=== PATIENT | male | born 1995 ===

== ENCOUNTER 2016-12-21 11:49 | Emergency (ER) | payer OTHER ==
--- NOTE | 2016-12-21 13:10 | DIAGNOSTIC IMAGING REPORT ---
PROCEDURE: XR CHEST 2 VIEW INDICATION: SHORTNESS OF BREATH TECHNIQUE: PA and lateral views. COMPARISON: None. FINDINGS: Lungs are clear. Heart and mediastinum are normal. Thorax is normal. IMPRESSION: 1. Negative chest.
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
--- NOTE | 2016-12-21 14:21 | ED ORDER SUMMARY ---
..... Patient: MANN PIZARRO OrderSheet [facility] VisitID: [id number] [place] [address] 21y, M Registration Date/Time: 12/21/2016 ORDER SHEET Weight: 73.9 kg (stated) Allergies: No Known Drug Allergy GENERAL ORDERS: Chest 2V Urgent (12:19 12/21/2016 DDean R.N. per protocol) (Ack 12:23 KHoerner) (13:08 DDean R.N.) EKG - ER Stat (12:20 12/21/2016 DDean R.N. per protocol) (Ack 12:23 KHoerner) (12:33 LNations ER Tech1) Cardiac Panel Stat (13:28 12/21/2016 Raad P.A.-C) (Ack 13:35 KHoerner) (13:54 KHoerner) MEDICATION ORDERS: IV FLUIDS: ORDER SHEET NOTES: [Electronically signed by Rosie Schultz R.N. (14:36 12/21/2016)] [Electronically signed by Mari Robertson P.ABrown-C (15:00 12/21/2016)] [Electronically locked/signed by Rosie Schultz R.N. (14:36 12/21/2016)]
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
--- NOTE | 2016-12-21 14:21 | ED ORDER SUMMARY ---
..... Patient: MANN PIZARRO OrderSheet [facility] VisitID: [id number] [place] [address] 21y, M Registration Date/Time: 12/21/2016 ORDER SHEET Weight: 73.9 kg (stated) Allergies: No Known Drug Allergy GENERAL ORDERS: Chest 2V Urgent (12:19 12/21/2016 DDean R.N. per protocol) (Ack 12:23 KHoerner) (13:08 DDean R.N.) EKG - ER Stat (12:20 12/21/2016 DDean R.N. per protocol) (Ack 12:23 KHoerner) (12:33 LNations ER Tech1) Cardiac Panel Stat (13:28 12/21/2016 Raad P.A.-C) (Ack 13:35 KHoerner) (13:54 KHoerner) MEDICATION ORDERS: IV FLUIDS: ORDER SHEET NOTES: [Electronically signed by Rosie Schultz R.N. (14:36 12/21/2016)] [Electronically signed by Mari Robertson P.ABrown-C (15:00 12/21/2016)] [Electronically locked/signed by Rosie Schultz R.N. (14:36 12/21/2016)]
--- NOTE | 2016-12-21 15:00 | ED DISCHARGE INSTRUCTIONS ---
Patient: MANN PIZARRO General Instructions [facility] VisitID: [id number] [place] [address] 21y, M Registration Date/Time: 12/21/2016 Substance abuse problems: abuse of alcohol. Contusion to the anterior chest. INSTRUCTIONS (with YOUR DR in 7 days if symptoms persist Please be careful over drinking as , alcohol is a sedative and will significantly impact your ability to breathe and function May take NSAID for pain, which may persist for up to 2 weeks). Warnings: Further evaluation is necessary. It is very important to follow up with a physician. OTC Medications: Motrin IB 200 mg (available over the counter): take 4 orally every 8 hours for 5 days, as needed for pain ADDITIONAL INFORMATION Chest Contusion Acontusion is a bruise to the skin, muscle or ribs. It may cause pain, tenderness, swelling and a purplish discoloration. Contusions take a few days to a few weeks to heal. Home Care: Rest. You should not be doing any heavy lifting or strenuous exertion, or any activity that causes pain. You may use acetaminophen (Tylenol) or ibuprofen (Motrin, Advil) to control pain, unless another pain medicine was prescribed. [ NOTE: If you have chronic liver or kidney disease or ever had a stomach ulcer or GI bleeding, talk with your doctor before using these medicines.] Follow Up with your doctor during the next week or as directed. Get Prompt Medical Attention if any of the following occur: Shortness of breath Increasing chest pain with breathing Dizziness, weakness or fainting New or worsening of abdominal pain Fever of 100.4F (38C) or higher, or as directed by your healthcare provider Ibuprofen Oral tablet What is this medicine? IBUPROFEN (eye BYOO proe fen) is a non-steroidal anti-inflammatory drug (NSAID). It is used for dental pain, fever, headaches or migraines, osteoarthritis, rheumatoid arthritis, or painful monthly periods. It can also relieve minor aches and pains caused by a cold, flu, or sore throat. How should I use this medicine? Take this medicine by mouth with a glass of water. Follow the directions on the prescription label. Take this medicine with food if your stomach gets upset. Try to not lie down for at least 10 minutes after you take the medicine. Take your medicine at regular intervals. Do not take your medicine more often than directed. A special MedGuide will be given to you by the pharmacist with each prescription and refill. Be sure to read this information carefully each time. Talk to your shingle grader regarding the use of this medicine in children. Special care may be needed. What side effects may I notice from receiving this medicine? Side effects that you should report to your doctor or health transitional care nurse as soon as possible: allergic reactions like skin rash, itching or hives, swelling of the face, lips, or tongue black or bloody stools, blood in the urine or in vomit breathing problems changes in vision chest pain general ill feeling or flu-like symptoms nausea or vomiting redness, blistering, peeling or loosening of the skin, including inside the mouth slurred speech or weakness on one side of the body stomach pain unexplained weight gain or swelling unusually weak or tired yellowing of eyes or skin Side effects that usually do not require medical attention (report to your doctor or health transitional care nurse if they continue or are bothersome): constipation or diarrhea dizziness gas or heartburn stomach upset What may interact with this medicine? Do not take this medicine with any of the following medications: cidofovir ketorolac methotrexate pemetrexed This medicine may also interact with the following medications: alcohol aspirin diuretics lithium other drugs for inflammation like prednisone warfarin What if I miss a dose? If you miss a dose, take it as soon as you can. If it is almost time for your next dose, take only that dose. Do not take double or extra doses. Where should I keep my medicine? Keep out of the reach of children. Store at room temperature between 15 and 30 degrees C (59 and 86 degrees F). Keep container tightly closed. Throw away any unused medicine after the expiration date. What should I tell my health care provider before I take this medicine? They need to know if you have any of these conditions: asthma cigarette smoker drink more than 3 alcohol containing drinks a day heart disease or circulation problems such as heart failure or leg edema (fluid retention) high blood pressure kidney disease liver disease stomach bleeding or ulcers an unusual or allergic reaction to ibuprofen, aspirin, other NSAIDS, other medicines, foods, dyes, or preservatives or trying to get breast-feeding What should I watch for while using this medicine? Tell your doctor or healthcare professional if your symptoms do not start to get better or if they get worse. This medicine does not prevent heart attack or stroke. In fact, this medicine may increase the chance of a heart attack or stroke. The chance may increase with longer use of this medicine and in people who have heart disease. If you take aspirin to prevent heart attack or stroke, talk with your doctor or health transitional care nurse. Do not take other medicines that contain aspirin, ibuprofen, or naproxen with this medicine. Side effects such as stomach upset, nausea, or ulcers may be more likely to occur. Many medicines available without a prescription should not be taken with this medicine. This medicine can cause ulcers and bleeding in the stomach and intestines at any time during treatment. Ulcers and bleeding can happen without warning symptoms and can cause . To reduce your risk, do not smoke cigarettes or drink alcohol while you are taking this medicine. You may get drowsy or dizzy. Do not drive, use machinery, or do anything that needs mental alertness until you know how this medicine affects you. Do not stand or sit up quickly, especially if you are an older patient. This reduces the risk of dizzy or fainting spells. This medicine can cause you to bleed more easily. Try to avoid damage to your teeth and gums when you brush or floss your teeth. You have been given the following additional information: Chest Wall Contusion Ibuprofen Oral tablet (Electronically signed by Mari Robertson P.A.-C 12/21/2016 15:00)
--- NOTE | 2016-12-21 15:00 | ED MAR SUMMARY ---
..... Medication Administration Record [facility] [address] [place], [place] [id number] Patient: MANN PIZARRO Visit ID: [id number] 21y, M Weight: 73.9 kg Height/Length: 68 in BMI: 24.8 ALLERGIES: No Known Drug Allergy
--- NOTE | 2016-12-21 15:00 | ED MED RECONCILIATION SUMMARY ---
Patient: MANN PIZARRO Medication Reconciliation Report [facility] VisitID: [id number] [address] [place] [address] 21y, M Registration Date/Time: 12/21/2016 Weight: 73.9 kg Height/Length: 68 in. BMI: 24.8 ALLERGIES: No Known Drug Allergy The patient's Home Medications are listed below: NONE. The source(s) of the original Home Medication information: Not obtained. The following Medications were given to the patient in the Emergency Department: None. The following Medications were prescribed to the patient: Motrin IB 200 mg (available over the counter): take 4 orally every 8 hours for 5 days, as needed for pain -- Mari Robertson P.A.-C
--- NOTE | 2016-12-21 15:00 | ED MAR SUMMARY ---
..... Medication Administration Record [facility] [address], [place] [id number] Patient: MANN PIZARRO Visit ID: [id number] 21y, M Weight: 73.9 kg Height/Length: 68 in BMI: 24.8 ALLERGIES: No Known Drug Allergy
--- NOTE | 2016-12-21 15:00 | ED MED RECONCILIATION SUMMARY ---
Patient: MANN PIZARRO Medication Reconciliation Report [facility] VisitID: [id number] [address] [place] [address] 21y, M Registration Date/Time: 12/21/2016 Weight: 73.9 kg Height/Length: 68 in. BMI: 24.8 ALLERGIES: No Known Drug Allergy The patient's Home Medications are listed below: NONE. The source(s) of the original Home Medication information: Not obtained. The following Medications were given to the patient in the Emergency Department: None. The following Medications were prescribed to the patient: Motrin IB 200 mg (available over the counter): take 4 orally every 8 hours for 5 days, as needed for pain -- Mari Robertson P.A.-C
--- NOTE | 2016-12-21 15:00 | ED DISCHARGE INSTRUCTIONS ---
Patient: MANN PIZARRO General Instructions [facility] VisitID: [id number] [place] [address] 21y, M Registration Date/Time: 12/21/2016 Substance abuse problems: abuse of alcohol. Contusion to the anterior chest. INSTRUCTIONS (with YOUR DR in 7 days if symptoms persist Please be careful over drinking as , alcohol is a sedative and will significantly impact your ability to breathe and function May take NSAID for pain, which may persist for up to 2 weeks). Warnings: Further evaluation is necessary. It is very important to follow up with a physician. OTC Medications: Motrin IB 200 mg (available over the counter): take 4 orally every 8 hours for 5 days, as needed for pain ADDITIONAL INFORMATION Chest Contusion Acontusion is a bruise to the skin, muscle or ribs. It may cause pain, tenderness, swelling and a purplish discoloration. Contusions take a few days to a few weeks to heal. Home Care: Rest. You should not be doing any heavy lifting or strenuous exertion, or any activity that causes pain. You may use acetaminophen (Tylenol) or ibuprofen (Motrin, Advil) to control pain, unless another pain medicine was prescribed. [ NOTE: If you have chronic liver or kidney disease or ever had a stomach ulcer or GI bleeding, talk with your doctor before using these medicines.] Follow Up with your doctor during the next week or as directed. Get Prompt Medical Attention if any of the following occur: Shortness of breath Increasing chest pain with breathing Dizziness, weakness or fainting New or worsening of abdominal pain Fever of 100.4F (38C) or higher, or as directed by your healthcare provider Ibuprofen Oral tablet What is this medicine? IBUPROFEN (eye BYOO proe fen) is a non-steroidal anti-inflammatory drug (NSAID). It is used for dental pain, fever, headaches or migraines, osteoarthritis, rheumatoid arthritis, or painful monthly periods. It can also relieve minor aches and pains caused by a cold, flu, or sore throat. How should I use this medicine? Take this medicine by mouth with a glass of water. Follow the directions on the prescription label. Take this medicine with food if your stomach gets upset. Try to not lie down for at least 10 minutes after you take the medicine. Take your medicine at regular intervals. Do not take your medicine more often than directed. A special MedGuide will be given to you by the pharmacist with each prescription and refill. Be sure to read this information carefully each time. Talk to your photogrammetric compilation specialist regarding the use of this medicine in children. Special care may be needed. What side effects may I notice from receiving this medicine? Side effects that you should report to your doctor or health rehab care assistant as soon as possible: allergic reactions like skin rash, itching or hives, swelling of the face, lips, or tongue black or bloody stools, blood in the urine or in vomit breathing problems changes in vision chest pain general ill feeling or flu-like symptoms nausea or vomiting redness, blistering, peeling or loosening of the skin, including inside the mouth slurred speech or weakness on one side of the body stomach pain unexplained weight gain or swelling unusually weak or tired yellowing of eyes or skin Side effects that usually do not require medical attention (report to your doctor or health rehab care assistant if they continue or are bothersome): constipation or diarrhea dizziness gas or heartburn stomach upset What may interact with this medicine? Do not take this medicine with any of the following medications: cidofovir ketorolac methotrexate pemetrexed This medicine may also interact with the following medications: alcohol aspirin diuretics lithium other drugs for inflammation like prednisone warfarin What if I miss a dose? If you miss a dose, take it as soon as you can. If it is almost time for your next dose, take only that dose. Do not take double or extra doses. Where should I keep my medicine? Keep out of the reach of children. Store at room temperature between 15 and 30 degrees C (59 and 86 degrees F). Keep container tightly closed. Throw away any unused medicine after the expiration date. What should I tell my health care provider before I take this medicine? They need to know if you have any of these conditions: asthma cigarette smoker drink more than 3 alcohol containing drinks a day heart disease or circulation problems such as heart failure or leg edema (fluid retention) high blood pressure kidney disease liver disease stomach bleeding or ulcers an unusual or allergic reaction to ibuprofen, aspirin, other NSAIDS, other medicines, foods, dyes, or preservatives or trying to get breast-feeding What should I watch for while using this medicine? Tell your doctor or healthcare professional if your symptoms do not start to get better or if they get worse. This medicine does not prevent heart attack or stroke. In fact, this medicine may increase the chance of a heart attack or stroke. The chance may increase with longer use of this medicine and in people who have heart disease. If you take aspirin to prevent heart attack or stroke, talk with your doctor or health rehab care assistant. Do not take other medicines that contain aspirin, ibuprofen, or naproxen with this medicine. Side effects such as stomach upset, nausea, or ulcers may be more likely to occur. Many medicines available without a prescription should not be taken with this medicine. This medicine can cause ulcers and bleeding in the stomach and intestines at any time during treatment. Ulcers and bleeding can happen without warning symptoms and can cause . To reduce your risk, do not smoke cigarettes or drink alcohol while you are taking this medicine. You may get drowsy or dizzy. Do not drive, use machinery, or do anything that needs mental alertness until you know how this medicine affects you. Do not stand or sit up quickly, especially if you are an older patient. This reduces the risk of dizzy or fainting spells. This medicine can cause you to bleed more easily. Try to avoid damage to your teeth and gums when you brush or floss your teeth. You have been given the following additional information: Chest Wall Contusion Ibuprofen Oral tablet (Electronically signed by Mari Robertson P.A.-C 12/21/2016 15:00)
== END 2016-12-21 14:27 | disposition home or self-care (01) ==
LOC: ED SRH 11:49
DX: S20.219A Contusion of unspecified front wall of thorax, initial encounter (principal); X58.XXXA Exposure to other specified factors, initial encounter; Y93.9 Activity, unspecified; Y92.9 Unspecified place or not applicable; Y99.9 Unspecified external cause status; F10.10 Alcohol abuse, uncomplicated
CPT/HCPCS: 90100; 90616; 92610; 92720; 95059